=== PATIENT | female | born 1950 ===

== ENCOUNTER 2016-08-16 07:30 | Emergency (ER) | payer SELFPAY ==
[2016-08-16 07:53] VITALS: RESP 18; BMI 30.2
--- NOTE | 2016-08-16 08:04 | C.PDOC ---
History Of Present Illness 65 y/o female hx of diabetes and HTN brought in by EMS s/p fall. Pt states she slipped on water at home and fell injuring her right shoulder and upper back. Pt also complaining of lower abdominal pain. Pt has not taken her medications today. Denies head injury, LOC, vomiting, weakness, numbness, chest pain, SOB or any other complaints. Time Seen by Provider: 08/16/16 07:31 Chief Complaint (Nursing): Upper Extremity Problem/Injury History Per: Patient History/Exam Limitations: no limitations Onset/Duration Of Symptoms: Hrs Current Symptoms Are (Timing): Still Present Quality: "Pain" Severity: Moderate Recent travel outside of the [place]: No Past Medical History Reviewed: Historical Data, Nursing Documentation, Vital Signs Vital Signs: Last Vital Signs Temp 97.9 F 08/16/16 10:11 Pulse 78 08/16/16 10:59 Resp 18 08/16/16 10:59 BP 178/98 H 08/16/16 10:59 Pulse Ox 97 08/16/16 10:59 - Medical History PMH: HTN, Hypercholesterolemia Surgical History: Cholecystectomy Family History: States: Unknown Family Hx - Social History Hx Alcohol Use: No Hx Substance Use: No - Immunization History Hx Influenza Vaccination: No Review Of Systems Except As Marked, All Systems Reviewed And Found Negative. Cardiovascular: Negative for: Chest Pain Respiratory: Negative for: Shortness of Breath Gastrointestinal: Positive for: Abdominal Pain. Negative for: Vomiting Musculoskeletal: Positive for: Shoulder Pain (right), Back Pain Neurological: Negative for: Weakness, Numbness Physical Exam - Physical Exam Appears: Non-toxic, No Acute Distress, Other (obese) Skin: Warm, Dry, No Rash Head: Atraumatic, Normacephalic Neck: Normal, Normal ROM, Supple Chest: Symmetrical, No Tenderness Cardiovascular: Rhythm Regular, No Murmur Respiratory: Normal Breath Sounds, No Rales, No Rhonchi, No Wheezing Gastrointestinal/Abdominal: Soft, Tenderness (suprapubic), No Guarding, No Rebound Back: Normal Inspection, No Vertebral Tenderness, No Paraspinal Tenderness Extremity: Normal ROM, No Tenderness, Capillary Refill (<2 seconds), No Deformity, No Swelling Neurological/Psych: Oriented x3, Normal Speech, Normal Cognition, Normal Motor, Normal Sensation ED Course And Treatment - Laboratory Results Interpretation Of Abnormal: Urine (+) WBCs O2 Sat by Pulse Oximetry: 97 (room air) Pulse Ox Interpretation: Normal - Other Rad No standard instances X-Ray: Viewed By Me, Read By Radiologist Interpretation: Shoulder X-Ray: DJD Progress Note: Plan: UA, tylenol, XR right shoulder. Treated with macrobid 100 mg PO. On re-evaluation moving all extremities, ambulating to bathroom. abdomen soft Reassessment Condition: Improved Disposition Counseled Patient/Family Regarding: Studies Performed, Diagnosis, Need For Followup, Rx Given - Disposition [facility] [place] [facility] Disposition: HOME/ ROUTINE Disposition Time: 10:50 Condition: STABLE Additional Instructions: Follow up with your PMD or clinic for further evaluation Prescriptions: Naproxen [Naprosyn] 1 tab PO BID PRN #25 tab PRN Reason: Pain Nitrofurantoin Macrocrystals [Macrobid] 1 cap PO BID #14 cap Instructions: Urinary Tract Infection in Women (ED), Fall Prevention for Older Adults (ED), Contusion in Adults (DC) - POA Present On Arrival: None - Clinical Impression Clinical Impression: Contusion, UTI (urinary tract infection) - PA / DRESSER TENDER / Resident Statement MD/DO has reviewed & agrees with the documentation as recorded. - Scribe Statement The provider has reviewed the documentation as recorded by the Scribteresa Baires All medical record entries made by the Petersonibteresa were at my direction and personally dictated by me. I have reviewed the chart and agree that the record accurately reflects my personal performance of the history, physical exam, medical decision making, and the department course for this patient. I have also personally directed, reviewed, and agree with the discharge instructions and disposition.
[2016-08-16 10:08] LABS: SQUAMOUS EPITHIAL 3 /hpf (0-5); URINE BILIRUBIN NEGATIVE (NEGATIVE); URINE BLOOD 1+ (NEGATIVE); URINE CLARITY Hazy (Clear); URINE COLOR Yellow (YELLOW); URINE GLUCOSE (UA) 1+ mg/dL (Normal); URINE LEUKOCYTE ESTERASE 3+ Leu/uL (Negative); URINE NITRATE NEGATIVE (NEGATIVE); URINE PROTEIN 2+ mg/dL (NEGATIVE); URINE UROBILINOGEN NORMAL mg/dL (0.2-1.0)
[2016-08-16 10:09] LABS: URINE BACTERIA FEW (<OCC)
[2016-08-16 10:12] VITALS: TEMP 97.9
[2016-08-16 10:31] VITALS: O2SAT 97
[2016-08-16 11:13] VITALS: BP 178/98; PULSE 78
--- NOTE | 2016-08-16 13:10 | RAD ---
PROCEDURE: Radiographs of the Right Shoulder HISTORY: pain COMPARISON: No prior. FINDINGS: BONES: There is no acute fracture or dislocation identified. No definite suspicious lytic or blastic change. JOINTS: There is prominent joint space narrowing of the glenohumeral joint as well as gross inferior osteophyte development and cortical articular sclerosis compatible with advanced osteoarthritis. Lesser degenerative change degenerative joint changes are seen at the acromioclavicular clavicular joint. SOFT TISSUES: Normal. OTHER FINDINGS: None. IMPRESSION: 1. No acute fracture dislocation identified. 2. Advanced osteoarthritis right glenohumeral joint. Mild degenerative joint changes right acromioclavicular joint.
== END 2016-08-16 11:39 | disposition home or self-care (01) ==
LOC: C.ER 07:30
DX: T14.8 Other injury of unspecified body region (principal); W01.0XXA Fall on same level from slipping, tripping and stumbling without subsequent striking against object, initial encounter; Y92.009 Unspecified place in unspecified non-institutional (private) residence as the place of occurrence of the external cause; N39.0 Urinary tract infection, site not specified